=== PATIENT | male | born 1980 | race Caucasian/White ===

== ENCOUNTER → 2019-12-09 | Outpatient (CLI) | payer OTHER ==
[~2019-12-09] MED LIST: ASPIRIN325 PO; DOXYCYCLINE 10100 MG PO; NORCO 5-325 TA1 EACH PO
== END ==
LOC: BC 15:01
DX: N63.20 Unspecified lump in the left breast, unspecified quadrant (principal)

== ENCOUNTER → 2019-12-13 | Outpatient (CLI) | payer OTHER | LOC: RAD 13:51 | DX: R92.8 Other abnormal and inconclusive findings on diagnostic imaging of breast (principal) ==